=== PATIENT | female | born 1965 | race Caucasian/White ===

== ENCOUNTER 2017-09-26 19:43 | Inpatient (IN) ==
[2017-09-26 20:42] LABS: Baso % (Auto) 0.1 % (0.0-2.0); Eos % (Auto) 0.1 % (0.0-4.0); Hemoglobin 15.2 gm/dL (11.6-15.3); Lymph # (Auto) 1.8 th/mm3 (1.0-4.8); Lymph % (Auto) 32.8 % (9.0-44.0); Mean Corpuscular HGB Conc 33.8 % (32.0-36.0); Mean Corpuscular Hemoglobin 30.7 pg (27.0-34.0); Mean Corpuscular Volume 90.7 fL (80.0-100.0); Mean Platelet Volume 8.4 fL (7.0-11.0); Mono # (Auto) 0.4 th/mm3 (0.0-0.9); Mono % (Auto) 6.5 % (0.0-8.0); Neut # (Auto) 3.3 th/mm3 (1.8-7.7); Neut % (Auto) 60.5 % (16.0-70.0); Platelet Count 252 th/mm3 (150-450); Red Blood Count 4.96 mil/mm3 (4.00-5.30); Red Cell Distribution Width 12.8 % (11.6-17.2); White Blood Count 5.5 th/mm3 (4.0-11.0)
--- NOTE | 2017-09-26 20:43 | ED ---
HPI General Chief Complaint: Psychiatric Symptoms Stated Complaint: OBPD/Psych Eval Time Seen by Provider: 09/27/17 16:20 Source: patient Mode of arrival: ambulatory Limitations: no limitations History of Present Illness HPI Narrative: 32-year-old female with PMH of depression and anxiety presents the ED Via [facility] under [place] act for psychiatric evaluation. According to the [place] act the patient stated that she felt hopeless and late in the middle of the road. On presentation the patient confirms this account. She states that she got kicked out of the place where she was standing was feeling hopeless. She denies suicidal or homicidal ideation. She denies previous psychiatric hospitalization. She states that she has multiple skin allergies that are mostly kept under control by diet and isolation from known allergens. She has no somatic complaints. She denies risk of . Related Data Home Medications Medication Instructions Recorded Confirmed mirtazapine 15 mg PO DAILY 09/26/17 09/26/17 Previous Rx's Medication Instructions Recorded clonazepam [Klonopin] 1 mg PO Q12HR tab 09/28/17 Allergies Allergy/AdvReac Type Severity Reaction Status Date / Time No Known Allergies Allergy Unverified 09/26/17 20:29 Review of Systems Except as stated in HPI: all other systems reviewed are negative [facility] Medical History Medical History Anxiety (Acute) Depression (Acute) Social History Social History Substance History: No History of Abuse Recent Travel in [facility] within the Last 8 Weeks: No Recent Out of Country Travel within the Last 8 Weeks: No Exam Narrative Exam Narrative: GENERAL: Thin, anxious white female no acute distress. SKIN: Focused skin assessment warm/dry. HEAD: Atraumatic. Normocephalic. EYES: Pupils equal and round. No scleral icterus. No injection or drainage. ENT: No nasal bleeding or discharge. Mucous membranes pink and moist. NECK: Trachea midline. No JVD. CARDIOVASCULAR: Regular rate and rhythm. No murmur appreciated. RESPIRATORY: No accessory muscle use. Clear to auscultation. Breath sounds equal bilaterally. GASTROINTESTINAL: Abdomen soft, non-tender, nondistended. Hepatic and splenic margins not palpable. MUSCULOSKELETAL: No obvious deformities. No clubbing. No cyanosis. No edema. NEUROLOGICAL: Awake and alert. No obvious cranial nerve deficits. Motor grossly within normal limits. Normal speech. PSYCHIATRIC: Anxious, occasionally tearful. Course Initial Documented Vital Signs Temperature 98.7 F 09/26/17 19:52 Pulse Rate 70 09/26/17 19:52 Respiratory Rate 18 09/26/17 19:52 Blood Pressure 138/82 09/26/17 19:52 Pulse Oximetry 100 09/26/17 19:52 Last Documented Vital Signs Temperature 98.5 F 09/28/17 05:16 Pulse Rate 80 09/28/17 05:16 Respiratory Rate 16 09/28/17 05:16 Blood Pressure 99/60 L 09/28/17 05:16 Pulse Oximetry 98 09/28/17 05:16 Medical Decision Making MDM Narrative Medical decision making narrative: 32-year-old female with PMH of depression and anxiety presents the ED Via [facility] under Gustafson act for psychiatric evaluation. Patient denies SI or HI. She denies any somatic complaints. Vitals reviewed. Physical exams reassuring. Mild elevation of the TSH with normal T3 and T4 indicating subclinical hypothyroidism. No other concerning abnormalities of the lab work. Patient's medically clear for psychiatric evaluation. Differential Diagnosis Differential Diagnosis: Adjustment disorder versus anxiety versus bipolar versus depression versus dementia versus electrolyte disorder versus malingering versus mood disorder versus ODD versus psychosis versus PTSD versus schizophrenia versus schizoaffective disorder versus substance-induced mood disorder versus other Lab Data Result diagrams: 09/26/17 19:58 09/26/17 19:58 Lab Results 09/26/17 09/26/17 09/26/17 Range/Units 19:58 19:58 19:58 WBC 5.5 (4.0-11.0) th/mm3 RBC 4.96 (4.00-5.30) mil/mm3 Hgb 15.2 (11.6-15.3) gm/dL Hct 45.0 (35.0-46.0) % MCV 90.7 (80.0-100.0) fL MCH 30.7 (27.0-34.0) pg MCHC 33.8 (32.0-36.0) % RDW 12.8 (11.6-17.2) % Plt Count 252 (150-450) th/mm3 MPV 8.4 (7.0-11.0) fL Neut % (Auto) 60.5 (16.0-70.0) % Lymph % (Auto) 32.8 (9.0-44.0) % [place] % (Auto) 6.5 (0.0-8.0) % Eos % (Auto) 0.1 (0.0-4.0) % Baso % (Auto) 0.1 (0.0-2.0) % Neut # (Auto) 3.3 (1.8-7.7) th/mm3 Lymph # (Auto) 1.8 (1.0-4.8) th/mm3 [place] # (Auto) 0.4 (0.0-0.9) th/mm3 Eos # (Auto) 0.0 (0.0-0.4) th/mm3 Baso # (Auto) 0.0 (0.0-0.2) th/mm3 WBC Differential . Differential Comment Auto diff final Sodium 140 (136-145) meq/L Potassium 3.8 (3.5-5.1) meq/L Chloride 102 (98-107) meq/L Carbon Dioxide 33.1 H (21.0-32.0) meq/L Anion Gap 5 (5-15) meq/L BUN 11 (7-18) mg/dL Creatinine 0.78 (0.50-1.00) mg/dL Estimated GFR 78 L (>89) mL/min Random Glucose 87 (74-106) mg/dL Calcium 9.7 (8.5-10.1) mg/dL Total Bilirubin 0.5 (0.2-1.0) mg/dL AST 36 (15-37) U/L ALT 60 H (10-53) U/L Alkaline Phosphatase 89 (45-117) U/L Total Protein 7.4 (6.4-8.2) g/dL Albumin 4.2 (3.4-5.0) g/dL TSH 4.010 H (0.358-3.740) uIU/mL Free T4 1.19 (0.76-1.46) ng/dL Free T3 2.76 (2.18-3.98) pg/mL Urine Opiates Screen (Neg) Ur Barbiturates Screen (Neg) Ur Amphetamines Screen (Neg) U Benzodiazepines Scrn (Neg) Urine Cocaine Screen (Neg) U Cannabinoids Screen (Neg) Serum Alcohol Less than 3 (0-5) mg/dL 09/26/17 Range/Units 20:45 WBC (4.0-11.0) th/mm3 RBC (4.00-5.30) mil/mm3 Hgb (11.6-15.3) gm/dL Hct (35.0-46.0) % MCV (80.0-100.0) fL MCH (27.0-34.0) pg MCHC (32.0-36.0) % RDW (11.6-17.2) % Plt Count (150-450) th/mm3 MPV (7.0-11.0) fL Neut % (Auto) (16.0-70.0) % Lymph % (Auto) (9.0-44.0) % Morton % (Auto) (0.0-8.0) % Eos % (Auto) (0.0-4.0) % Baso % (Auto) (0.0-2.0) % Neut # (Auto) (1.8-7.7) th/mm3 Lymph # (Auto) (1.0-4.8) th/mm3 Morton # (Auto) (0.0-0.9) th/mm3 Eos # (Auto) (0.0-0.4) th/mm3 Baso # (Auto) (0.0-0.2) th/mm3 WBC Differential Differential Comment Sodium (136-145) meq/L Potassium (3.5-5.1) meq/L Chloride (98-107) meq/L Carbon Dioxide (21.0-32.0) meq/L Anion Gap (5-15) meq/L BUN (7-18) mg/dL Creatinine (0.50-1.00) mg/dL Estimated GFR (>89) mL/min Random Glucose (74-106) mg/dL Calcium (8.5-10.1) mg/dL Total Bilirubin (0.2-1.0) mg/dL AST (15-37) U/L ALT (10-53) U/L Alkaline Phosphatase (45-117) U/L Total Protein (6.4-8.2) g/dL Albumin (3.4-5.0) g/dL TSH (0.358-3.740) uIU/mL Free T4 (0.76-1.46) ng/dL Free T3 (2.18-3.98) pg/mL Urine Opiates Screen Neg (Neg) Ur Barbiturates Screen Neg (Neg) Ur Amphetamines Screen Neg (Neg) U Benzodiazepines Scrn Neg (Neg) Urine Cocaine Screen Neg (Neg) U Cannabinoids Screen Neg (Neg) Serum Alcohol (0-5) mg/dL Discharge Plan Discharge Disposition Patient Disposition: 30 Still Patient Discharge Condition Condition: Stable Discharge Order Discharge Orders: Discharge Order (Routine); Ordered 09/28/17 Ordered By: Harry Poole Discharge Details Diagnosis: Subclinical hypothyroidism, Medical clearance for psychiatric admission Physicians Team ED Provider: Jenni Brink ED Midlevel Provider: Wen Faye Primary Care Provider: Primary Care Jada Espinoza Attending Provider: Harry Poole Status ED Status: Left Department Discharge Information Discharge Date/Time: 09/27/17 17:00
[2017-09-26 21:01] LABS: Albumin 4.2 g/dL (3.4-5.0); Anion Gap 5 meq/L (5-15); Aspartate Aminotransferase 36 U/L (15-37); Blood Urea Nitrogen 11 mg/dL (7-18); Calcium 9.7 mg/dL (8.5-10.1); Carbon Dioxide 33.1 meq/L (21.0-32.0); Chloride 102 meq/L (98-107); Glomerular Filtration Rate 78 mL/min (>89); Glucose,Random 87 mg/dL (74-106); Potassium 3.8 meq/L (3.5-5.1); Sodium 140 meq/L (136-145)
[2017-09-26 21:02] LABS: Alanine Aminotransferase 60 U/L (10-53)
[2017-09-26 21:12] LABS: Alkaline Phosphatase 89 U/L (45-117); Total Protein 7.4 g/dL (6.4-8.2)
[2017-09-26 21:20] LABS: Amphetamine Screen,Urine Neg (Neg); Barbiturate Screen,Urine Neg (Neg); Cannabinoid Screen,Urine Neg (Neg); Cocaine Screen,Urine Neg (Neg)
[2017-09-26 21:24] LABS: Opiate Screen,Urine Neg (Neg)
[2017-09-26 22:18] LABS: Free T4 (Free Thyroxine) 1.19 ng/dL (0.76-1.46); Triiodothyronine (T3) Free 2.76 pg/mL (2.18-3.98)
--- NOTE | 2017-09-27 16:40 | ED ---
HPI - Psych - General Source: patient, other (PCP DR. Aponte) Mode of arrival: ambulatory Limitations: no limitations - History of Present Illness MD complaint: suicidal ideation Onset (ago): hour(s) Duration: resolved prior to arrival History of same: No Relieving factors: none Exacerbating factors: other (homelessness) Context: other Associated symptoms: other (multiple somatic complaints) Treatments prior to arrival: none - General Chief Complaint: Psychiatric Symptoms Stated Complaint: OBPD/Psych Eval Time Seen by Provider: 09/27/17 16:20 - History of Present Illness HPI Narrative: History of Present Illness HPI Narrative: 32-year-old, female, who lives in [place], with reported PMH of anxiety who presents the ED Via [facility] under Spyder Lynk act for psychiatric evaluation. According to the Gustafson act the patient stated that she felt hopeless, wanted to kill herself and attempted to run into traffic. On presentation the patient confirms this account. She states that she got kicked out of the place where she was staying and is feeling hopeless. She denies suicidal or homicidal ideation. She denies previous psychiatric hospitalization. She states that she has multiple skin allergies that are mostly kept under control by diet and isolation from known allergens. She has no somatic complaints. She denies risk of . I received a call from the patient's current PCP Dr. Pamela Aponte at [phone].She provides a lengthy medical history including treatment for various allergies, deficiencies, mold contamination. Reports she knows the patient for the past four years and has been treating her on a daily basis for the last month. She states that she specializes in family practice and nutrition and is treating the patient for chronic inflammatory response syndrome. She goes on to state that the patient has multiple allergies and sensitivities that she treats her for. She goes on to state that she is very concerned for the patient's current mental state because she has been increasingly impulsive, dangerous, making suicidal statements, has episodes of making sense and being and logical and then followed by episodes of being ilogical. She feels her behavior has gotten worse over the past several weeks. She goes on to state that since September 10 the patient lost her [address] where she was staying here in [facility] and "I was creative and unusual and asked one of my patients to take her in". However that person called the police to have her taken out of her house because she has been acting erratically. Patient is seen. Alert, oriented. She is somatically focused on her various allergies, sensitivities, food preferences and requirements. She tends to be over inclusive and requires redirection to answer questions. She does not present any psychosis, no berna or hypomania. Mood is anxious. She currently denies any suicidal or homicidal ideation, intent or plan. She initially denies that she said she was trying to kill herself or that she went in the road but later she changed his story to indicate that she had thought about jumping into traffic. In terms of psychiatric history. She has no previous psychiatric inpatient treatment. She sees Dr. Eun Grimaldo in [place] and has been treated for anxiety with Klonopin. She takes Remeron for sleep. (Kyung Carter) - Related Data Home Medications Medication Instructions Recorded Confirmed clonazepam 1 mg PO TID 09/26/17 09/26/17 mirtazapine 15 mg PO DAILY 09/26/17 09/26/17 Allergies Allergy/AdvReac Type Severity Reaction Status Date / Time No Known Allergies Allergy Unverified 09/26/17 20:29 [facility] - History History Provided By: Patient - Medical History Medical History: Medical History (Last Updated 09/27/17 @ 04:33 by Fauzia Gonzalez RN) Anxiety Depression - Substance Use History Substance History: No History of Abuse - Travel History Recent Travel in the [facility] Within the Last 8 Weeks: No Recent Travel Out of the Country Within the Last 8 Weeks: No Psychiatric History - Psychiatric History Psychiatric Treatment History: History of Psychiatric Treatment History of Inpatient Treatment: No Firearms in Home: No - Psychiatric History Has been in psychiatric treatment for the past 19 years. No hx of impatient treatment (Carter,Kyung) - Family Psychiatric History None reported (CarterShinKyung) Physical Exam - General Limitations: no limitations Mental Status Examination Consciousness: Alert Orientation: x4 Motor Activity: Normal gait Speech: Unremarkable Language: Adequate Fund of Knowledge: Adequate Attention and Concentration: Adequate Memory: Unremarkable Mood: Anxious Affect: Appropriate Thought Process & Associations: Intact, Logical Thought Content: Preoccupations (re contaminants) Hallucination Type: None Delusion Type: None Suicidal Ideation: No Suicidal Plan: No Suicidal Intention: No Homicidal Ideation: No Homicidal Plan: No Homicidal Intention: No Insight: Fair Judgment: Impulsive Initial Documented Vital Signs Temperature 98.7 F 09/26/17 19:52 Pulse Rate 70 09/26/17 19:52 Respiratory Rate 18 09/26/17 19:52 Blood Pressure 138/82 09/26/17 19:52 Pulse Oximetry 100 09/26/17 19:52 Last Documented Vital Signs Temperature 98.7 F 09/26/17 19:52 Pulse Rate 70 09/26/17 19:52 Respiratory Rate 18 09/26/17 19:52 Blood Pressure 138/82 09/26/17 19:52 Pulse Oximetry 100 09/26/17 19:52 MDM - Psych - Diagnosis (1) Anxiety disorder Status: Acute - Lab Data Result diagrams: 09/26/17 19:58 09/26/17 19:58 - [facility] Narrative Medical decision making narrative: 32-year-old, female with reported PMH of anxiety who presents the ED Via [facility] under [place] act for psychiatric evaluation. According to the Gust[place]son act the patient stated that she felt hopeless, wanted to kill herself and attempted to run into traffic. Patient vacillates between admitting she attempted to run into traffic and stating that she did not. She denies current suicidal ideation. The patient's primary care physician contacted [facility] to advise of loss of her concerns for the patient's current psychiatric state, her unpredictability, her impulsivity, and her reported frequent suicidal statements. Based on such information and out of an abundance of caution the patient will be admitted for further evaluation, stabilization and safety. ( Kyung Carter) - Lab Data Lab Results 09/26/17 09/26/17 09/26/17 Range/Units 19:58 19:58 19:58 WBC 5.5 (4.0-11.0) th/mm3 RBC 4.96 (4.00-5.30) mil/mm3 Hgb 15.2 (11.6-15.3) gm/dL Hct 45.0 (35.0-46.0) % MCV 90.7 (80.0-100.0) fL MCH 30.7 (27.0-34.0) pg MCHC 33.8 (32.0-36.0) % RDW 12.8 (11.6-17.2) % Plt Count 252 (150-450) th/mm3 MPV 8.4 (7.0-11.0) fL Neut % (Auto) 60.5 (16.0-70.0) % Lymph % (Auto) 32.8 (9.0-44.0) % [place] % (Auto) 6.5 (0.0-8.0) % Eos % (Auto) 0.1 (0.0-4.0) % Baso % (Auto) 0.1 (0.0-2.0) % Neut # (Auto) 3.3 (1.8-7.7) th/mm3 Lymph # (Auto) 1.8 (1.0-4.8) th/mm3 [place] # (Auto) 0.4 (0.0-0.9) th/mm3 Eos # (Auto) 0.0 (0.0-0.4) th/mm3 Baso # (Auto) 0.0 (0.0-0.2) th/mm3 WBC Differential . Differential Comment Auto diff final Sodium 140 (136-145) meq/L Potassium 3.8 (3.5-5.1) meq/L Chloride 102 (98-107) meq/L Carbon Dioxide 33.1 H (21.0-32.0) meq/L Anion Gap 5 (5-15) meq/L BUN 11 (7-18) mg/dL Creatinine 0.78 (0.50-1.00) mg/dL Estimated GFR 78 L (>89) mL/min Random Glucose 87 (74-106) mg/dL Calcium 9.7 (8.5-10.1) mg/dL Total Bilirubin 0.5 (0.2-1.0) mg/dL AST 36 (15-37) U/L ALT 60 H (10-53) U/L Alkaline Phosphatase 89 (45-117) U/L Total Protein 7.4 (6.4-8.2) g/dL Albumin 4.2 (3.4-5.0) g/dL TSH 4.010 H (0.358-3.740) uIU/mL Free T4 1.19 (0.76-1.46) ng/dL Free T3 2.76 (2.18-3.98) pg/mL Urine Opiates Screen (Neg) Ur Barbiturates Screen (Neg) Ur Amphetamines Screen (Neg) U Benzodiazepines Scrn (Neg) Urine Cocaine Screen (Neg) U Cannabinoids Screen (Neg) Serum Alcohol Less than 3 (0-5) mg/dL 09/26/17 Range/Units 20:45 WBC (4.0-11.0) th/mm3 RBC (4.00-5.30) mil/mm3 Hgb (11.6-15.3) gm/dL Hct (35.0-46.0) % MCV (80.0-100.0) fL MCH (27.0-34.0) pg MCHC (32.0-36.0) % RDW (11.6-17.2) % Plt Count (150-450) th/mm3 MPV (7.0-11.0) fL Neut % (Auto) (16.0-70.0) % Lymph % (Auto) (9.0-44.0) % [place] % (Auto) (0.0-8.0) % Eos % (Auto) (0.0-4.0) % Baso % (Auto) (0.0-2.0) % Neut # (Auto) (1.8-7.7) th/mm3 Lymph # (Auto) (1.0-4.8) th/mm3 [place] # (Auto) (0.0-0.9) th/mm3 Eos # (Auto) (0.0-0.4) th/mm3 Baso # (Auto) (0.0-0.2) th/mm3 WBC Differential Differential Comment Sodium (136-145) meq/L Potassium (3.5-5.1) meq/L Chloride (98-107) meq/L Carbon Dioxide (21.0-32.0) meq/L Anion Gap (5-15) meq/L BUN (7-18) mg/dL Creatinine (0.50-1.00) mg/dL Estimated GFR (>89) mL/min Random Glucose (74-106) mg/dL Calcium (8.5-10.1) mg/dL Total Bilirubin (0.2-1.0) mg/dL AST (15-37) U/L ALT (10-53) U/L Alkaline Phosphatase (45-117) U/L Total Protein (6.4-8.2) g/dL Albumin (3.4-5.0) g/dL TSH (0.358-3.740) uIU/mL Free T4 (0.76-1.46) ng/dL Free T3 (2.18-3.98) pg/mL Urine Opiates Screen Neg (Neg) Ur Barbiturates Screen Neg (Neg) Ur Amphetamines Screen Neg (Neg) U Benzodiazepines Scrn Neg (Neg) Urine Cocaine Screen Neg (Neg) U Cannabinoids Screen Neg (Neg) Serum Alcohol (0-5) mg/dL
[2017-09-27] MEDS ORDERED: Aluminum/Magnesium/Simethacone Susp 30 ML UDC PO PRN (16:42)
[2017-09-27] MEDS: clonazePAM 1 MG Tablet PO SCH (20:48)
[2017-09-27] MEDS: Mirtazapine 15 MG Tablet PO SCH (20:48)
[2017-09-28] MEDS: Mirtazapine 15 MG Tablet PO SCH (11:16)
--- NOTE | 2017-09-28 11:16 | P.HPPSY ---
Provisional Diagnosis Admission Date: September 27, 2017 16:57 Burns I.: Adjustment disorder with depressed mood Competence Certification of Person's Competence To Provide Express and Informed Consent I have personally examined Pamela Mathur, a person being served at [facility] on, September 28, 2017 1103. Express and informed consent means consent voluntarily given in writing, by a competent person, after sufficient explanation and disclosure of the subject matter involved to enable the person to make a knowing and willful decision without any element of force, fraud, deceit, duress, or other form of constraint or coercion. This person is 18 years of age or older, is not now known to be incompetent to consent to treatment with a guardian advocate, and does not have a health care surrogate or proxy currently making medical treatment decisions. I have found this person to be one of the following: [xxx] Competent to provide express and informed consent, as defined above, for voluntary admission to this facility and is competent to provide express and informed consent for treatment. He/she has the consistent capacity to make well reasoned, willful, and knowing decisions concerning his or her medical or mental health treatment. The person fully and consistently understands the purpose of the admission for examination/placement and is fully capable of personally exercising all rights [place] Incompetent to provide express and informed consent to voluntary admission, and this is incompetent to provide express and informed consent to treatment. The person must be transferred to involuntary status and a petition for a guardian advocate filed with the Circuit Court. [] Refusing to provide express and informed consent to voluntary admission but is competent to provide express and informed consent for treatment. The person must be discharged or transferred to involuntary status. Form shall be completed within 24 hours of a person's arrival at the receiving facility and filed in the clinical record of each person: 1. Admitted on a voluntary basis 2. Permitted to provide express and informed consent to his/her own treatment 3. Allowed to transfer from involuntary to voluntary status 4. Prior to permitting a person to consent to his or her own treatment after having been previously found incompetent to consent to treatment. History of Present Illness Capacity: Has capacity History of Present Illness: Patient is a 52 y/o woman, , has one daughter, unemployed, recently kicked out of home, with past psychiatric history of depression, anxiety, no prior psychiatric admissions, no prior suicide attempts or self injurious behavior, with no substance use history, with self reported medical history of chronic inflammatory response syndrome, who was brought into the ED under [employer] after patient reported feeling hopeless and walked in the middle of the road in the context of recently kicked out of the home where she was staying in which patient was admitted to the inpatient psychiatry unit for further evaluation and management. Patient was found participating in group, seen with therapists, noted to be calm and cooperative. Patient states that she had come up to [facility] one month ago to stay close to her primary care physician for follow up which her PCP had arranged patient to stay at known person's home but was recently kicked out. She states had a conversation with her father and PCP over the phone when she became upset and walked onto the road and subsequently brought in by law enforcement under [place] act. She states that she is here because she has a "weird illness..I'm chemically sensitive". She states that she had nowhere to go had led up to her feeling overwhelmed and events stated above. She plans on going with her father who will be taking her to airport to fly to [place] and stay with her aunt. She states that her mood has been "depressed", but does not endorse any SI, stating "only the day I got kicked out", "I want to live!". She reports having felt depressed "on and off" over the past month because she had no car and staying with a stranger) but denies any depressive symptoms prior her move here. Currently she states feeling anxious being in the hospital, denies feeling depressed, denies any other mood or psychotic symptoms at this time, rest of psychiatric ROS negative. She states that her reasons to live are her daughter , family, her friends and her art work. Family history: denies Past psychiatric history: previous psychiatric diagnosis of depression, anxiety , no prior psychiatric hospitalization, no prior suicide attempts or self injurious behavior. Denies any history of abuse. Outpatient [facility] health provider: Dr. Grimaldo (last seen in April). Substance use history: denies Past medical history: self reported chronic inflammatory response syndrome Allergies: NKDA Social history: From [place], recently staying at [facility] for 1 month but recently kicked out. has one 15 y/o daughter, unemployed. - Inpatient Certification I certify that the inpatient services were ordered in accordance with Medicare regulations governing the order. This includes certification that hospital inpatient services are reasonable and necessary and in the case of services not specified as inpatient-only under 42 CFR 419.22(n), that they are appropriately provided as inpatient services in accordance to with the 2-midnight benchmark under 43 CFR 412.3(e) I certify that inpatient psychiatric hospital services are medically necessary. Evaluation and treatment and/or diagnostic testing are expected to improve the patient's condition. The patient needs on a daily basis, active treatment furnished directly by or requiring the supervision of inpatient psychiatric facility personnel. Estimated Total Length of Stay (Days): 5 Plans for Post Hospital Care: Not yet determined Review of Systems All other systems reviewed negative except as stated in HPI [facility] - History History Provided By: Patient, Medical Record - Medical History Medical History: Medical History (Last Updated 09/27/17 @ 04:33 by Fauzia Gonzalez RN) Anxiety Depression - Substance Use History Substance History: No History of Abuse - Travel History Recent Travel in the [place] Within the Last 8 Weeks: No Recent Travel Out of the Country Within the Last 8 Weeks: No - Immunization History Tetanus Immunization: Never Vaccinated Hx Influenza Vaccine This Season: No Quality Measures - Psychiatric History Psychological trauma history: denies Violence risk to others in the last 6 months: low Violence risk to self in the last 6 months: low - Substance Abuse History Drug or alcohol use in the past 12 months: denies - Patient Strengths Patient's strengths (minimum of 2): verbal and communicative Medications and Allergies Active Medications: Active Medications Al Hydrox/Mg Hydrox/Simethicone (Mag-Al Plus Susp Liq) 30 ml PO Q6H PRN PRN Reason: DYSPEPSIA Al Hydroxide/Mg Hydroxide (Milk Of Magnesia Liq) 30 ml PO Q12H PRN PRN Reason: Mild Constipation Clonazepam (Klonopin) 1 mg PO Q12HR RAIZA Last Admin: 09/27/17 20:48 Dose: 1 mg Mirtazapine (Remeron) 15 mg PO DAILY RAIZA Last Admin: 09/27/17 20:48 Dose: 15 mg Allergies Allergy/AdvReac Type Severity Reaction Status Date / Time No Known Allergies Allergy Unverified 09/26/17 20:29 Home Medications Medication Instructions Recorded Confirmed Type clonazepam 1 mg PO TID 09/26/17 09/26/17 History mirtazapine 15 mg PO DAILY 09/26/17 09/26/17 History Results - Labs CBC & Chem 7: 09/26/17 19:58 09/26/17 19:58 Exam Vital signs: Vital Signs 09/27/17 17:43 09/28/17 05:16 Temperature 98.2 F 98.5 F Pulse Rate 95 H 80 Respiratory Rate 18 16 Blood Pressure 105/71 99/60 L Pulse Oximetry 98 98 Intake & Output 09/27/17 09/28/17 09/28/17 18:59 06:59 18:59 Intake Total 720 / 720 Balance 720 / 720 Weight 48.2 kg Intake: Oral 720 / 720 Other: Weight On Admission 48.2 kg Narrative: Not noted to be in acute distress, no gross motor abnormalities, no tremor or EPS, no psychomotor agitation or retardation. - Constitutional no acute distress, cooperative Mental Status Examination Appearance: Appropriate Consciousness: Alert Orientation: x4 Motor Activity: Normal gait Speech: Unremarkable Language: Adequate Fund of Knowledge: Adequate Attention and Concentration: Adequate Memory: Unremarkable Mood: Anxious Affect: Appropriate Thought Process & Associations: Intact, Logical Thought Content: Appropriate Hallucination Type: None Delusion Type: None Suicidal Ideation: No Suicidal Plan: No Suicidal Intention: No Homicidal Ideation: No Homicidal Plan: No Homicidal Intention: No Insight: Fair Judgment: Impulsive Assessment and Plan - Assessment (1) Adjustment disorder with depressed mood Code(s): F43.21 - Adjustment disorder with depressed mood Status: Acute - Plan Plan: Estimated LOS: [] days Patient is a 52 y/o woman, who carries a diagnosis of depression, anxiety, no prior psychiatric admissions, no prior suicide attempts or self injurious behavior who was admitted due to recent suicidal statements and having walked onto the road which she was admitted to the inpatient unit for further observation and safety. Patient since admission has not been noted with depressive symptoms, denied any further suicidal ideation, is future oriented, recent event likely secondary to poor impulse control and judgement from recent social circumstances but at this time is at low acute risk for self harm and has family support, goal directed. Patient psychiatrically clear for discharge to father's care who plans on taking patient to her aunt's residence in [place]. Patient to continue current treatment and establish care with new mental health provider in [place]. Patient was advised to call 911 or return to ED in case of emergency, patient and family agree with plan. Justification for Continued Inpatient Stay: Patient to be discharged today.
[2017-09-28] MEDS: clonazePAM 1 MG Tablet PO SCH (11:17)
== END 2017-09-28 15:55 | disposition home or self-care (01) ==
LOC: NEPJ 19:43 → NEDA 09-27 16:57 → H260 09-27 17:00
PROVIDERS: ADMIT Student in an Organized Health Care Education/Training Program; ATTEND Student in an Organized Health Care Education/Training Program